=== PATIENT | male | born 1990 | race Two or more races ===

== ENCOUNTER 2021-08-10 17:14 | Emergency (ER) | payer SELFPAY ==
[~2021-08-10] VITALS: Ht 167.6 cm; Wt 93.9 kg
[2021-08-10 17:18] VITALS: BP 132/63
[2021-08-10] MEDS ORDERED: traMADol HCL 50 MG TAB PO ONE (20:30)
== END 2021-08-11 01:07 | disposition left against medical advice (07) ==
LOC: ER 17:14 → EDBD 17:14 → ER 08-11 01:07
DX: M54.9 Dorsalgia, unspecified (principal); Z90.89 Acquired absence of other organs; V49.59XA Passenger injured in collision with other motor vehicles in traffic accident, initial encounter; Y93.89 Activity, other specified; Y92.488 Other paved roadways as the place of occurrence of the external cause; Y99.8 Other external cause status
CPT/HCPCS: 71046; 72131